=== PATIENT | female | born 1990 | race African-American/Black ===

== ENCOUNTER 2017-08-05 05:02 | Day surgery (SDC) | payer OTHER ==
[2017-07-29 10:20] VITALS: BMI 24.3
[2017-08-05] MEDS ORDERED: LIDOCAINE HCL/PF 2% SDV 5ML VIAL ONE (07:34)
[2017-08-05] MEDS ORDERED: MIDAZOLAM HCL 2 MG/2 ML SINGLE DOSE VIAL ONE (07:35)
[2017-08-05] MEDS ORDERED: SUCCINYLCHOLINE CHLORIDE 200 MG/10 ML VIAL ONE (07:35)
[2017-08-05] MEDS ORDERED: PROPOFOL 20 ML ONE (07:35)
--- NOTE | 2017-08-05 07:58 | HP ---
Admitting History and Physical - Admission Chief Complaint: Abnormal Pap smear History of Present Illness: 26 yo Para 0, LMP unknown, with h/o cervical dysplasia is Pre op for LEEP. History Source: Patient Limitations to Obtaining History: No Limitations - Past Medical History ...LMP: 07/09/17 ...: No ...Para: 0 - Past Surgical History Past Surgical History: Yes: None - Smoking History Smoking history: Never smoked Have you smoked in the past 12 months: No - Alcohol/Substance Use Hx Alcohol Use: Yes (OCCAS) - Social History Usual Living Arrangement: Yes: Alone History of Recent Travel: No Home Medications - Allergies Allergies/Adverse Reactions: Allergies Allergy/AdvReac Type Severity Reaction Status Date / Time No Known Drug Allergies Allergy Verified 08/05/17 07:11 - Home Medications Home Medications: Ambulatory Orders Ascorbic Acid/Vitamin E/Biotin [Hair Skin Nails-Biotin Gummies] 1 each PO DAILY 07/29/17 Iron 18 mg PO DAILY 07/29/17 [place]-3S/Dha/Epa/Fish Oil/D3 [Fish Oil Gummies] 1 each PO DAILY 07/29/17 Family Disease History - Family Disease History Family History: Unremarkable Review of Systems - Review of Systems Constitutional: reports: No Symptoms Eyes: reports: No Symptoms HENT: reports: No Symptoms Neck: reports: No Symptoms Cardiovascular: reports: No Symptoms Respiratory: reports: No Symptoms Gastrointestinal: reports: No Symptoms Genitourinary: reports: No Symptoms Breasts: reports: No Symptoms Reported Musculoskeletal: reports: No Symptoms Integumentary: reports: No Symptoms Neurological: reports: No Symptoms Endocrine: reports: No Symptoms Hematology/Lymphatic: reports: No Symptoms Psychiatric: reports: No Symptoms Pain Intensity: 0 Physical Examination Vital Signs: Vital Signs Temperature 98.8 F 08/05/17 06:52 Pulse Rate 70 08/05/17 06:52 Respiratory Rate 16 08/05/17 06:52 Blood Pressure 103/77 08/05/17 06:52 O2 Sat by Pulse Oximetry (%) 100 08/05/17 06:53 Constitutional: Yes: Well Nourished Eyes: Yes: Conjunctiva Clear HENT: Yes: Atraumatic Neck: Yes: Supple Cardiovascular: Yes: Regular Rate and Rhythm Respiratory: Yes: Regular Gastrointestinal: Yes: Normal Bowel Sounds Extremities: Yes: WNL Neurological: Yes: Alert, Oriented ...Motor Strength: WNL Psychiatric: Yes: Alert, Oriented Problem List - Problems (1) Dysplasia of cervix Code(s): N87.9 - DYSPLASIA OF CERVIX UTERI, UNSPECIFIED Assessment/Plan Cervical dysplasia Pre op for LEEP Consent signed Anesthesia to see patient
--- NOTE | 2017-08-05 07:59 | OP ---
Operative Note - Note: Operative Date: 08/05/17 Pre-Operative Diagnosis: Cervical dysplasia Operation: Loop Electrode Excisional Procedure Post-Operative Diagnosis: Same as Pre-op Surgeon: Crystal Tate Anesthesia: General Specimens Removed: Portion of the cervix Estimated Blood Loss (mls): 10
[2017-08-05] MEDS ORDERED: oxyCODONE HCL 5 MG TABLET PO PRN (08:06)
[2017-08-05] MEDS ORDERED: ONDANSETRON 4 MG/2 ML VIAL IVPUSH PRN (08:06)
[2017-08-05] MEDS ORDERED: PROMETHAZINE HCL 25 MG/1 ML VIAL IVPUSH PRN (08:06)
[2017-08-05] MEDS ORDERED: DEXAMETHASONE SOD PHOSPHATE 4 MG/1 ML VIAL ONE (08:13)
[2017-08-05 09:55] VITALS: TEMP 98.6
[2017-08-05 12:18] VITALS: BP 112/64; PULSE 62
--- NOTE | 2017-08-06 11:24 | PATH ---
Surgical Pathology Report Patient Name: TIMOTHY ORONA [facility]. Rec. #: [id number] /Age/Gender: 1990 (Age: 26) / F Account: [id number] Location: [facility] SURGICAL Taken: 08/05/2017 Received: 08/05/2017 Reported: 08/06/2017 Physicians: Crystal Tate M.D. 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 HSIL IS PRESENT IN ALL 4 QUADRANTS OF THE CERVIX. ALL MARGINS OF EXCISION ARE FREE OF LESION, WITH HSIL LESS THAN 1 MM FROM THE ENDOCERVICAL ASPECT OF THE MAIN SPECIMEN, AND NOT IDENTIFIED IN THE ADDITIONAL PORTION OF SUBMITTED TISSUE. Electronically Signed Neto Ruth M.D. Gross Description Received in formalin labeled "portion of cervix," is a 2 cm in diameter x 1 cm in depth ramirez, annular portion of soft tissue, consistent with a cervical LEEP cone biopsy. There is a suture marking the 12:00 aspect of the specimen, per the surgeon. The specimen is surfaced by a ramirez-pink, shiny and glistening mucosa. The specimen is inked blue and serially sectioned. Separately received within the same container is a 1.0 x 0.5 x 0.2 cm ramirez-pink, irregular, unoriented portion of soft tissue. The specimen is inked blue and serially sectioned. The specimen is entirely submitted in 5 cassettes as follows: 1-12:00 to 3:00; 2-3:00 to 6:00; 3-6:00 to 9:00; 4-9:00 to 12:00; 5-separately received portion of tissue. DL/08/05/2017 saudi/08/05/2017
== END 2017-08-05 11:30 | disposition home or self-care (01) ==
LOC: JASU-SURG 05:02
PROVIDERS: ATTEND Obstetrics & Gynecology
PROC: 0UBC7ZX Excision of Cervix, Via Natural or Artificial Opening, Diagnostic (ICD-10-PCS; principal; 2017-08-05 08:00)
DX: D06.0 Carcinoma in situ of endocervix (principal)
CPT/HCPCS: 84703; 88307-TC; 94760

== ENCOUNTER 2021-10-30 16:29 | Emergency (ER) | payer OTHER ==
[2021-10-30 16:59] VITALS: BP 107/66; PULSE 74; TEMP 98.3; BMI 21.4
[2021-10-30] MEDS ORDERED: METOCLOPRAMIDE HCL INJECTION 10 MG/2 ML VIAL IVPB ONE (19:15)
[2021-10-30] MEDS ORDERED: KETOROLAC TROMETHAMINE 30 MG/1 ML VIAL IVPUSH ONE (19:15)
[2021-10-30] MEDS ORDERED: KETOROLAC TROMETHAMINE 30 MG/1 ML VIAL ONE (19:18)
[2021-10-30] MEDS ORDERED: METOCLOPRAMIDE HCL INJECTION 10 MG/2 ML VIAL ONE (19:18)
[2021-10-30] MEDS ORDERED: ACETAMINOPHEN/CAFFEINE/BUTALBITAL 1 TAB PO ONE (20:18)
[2021-10-30] MEDS ORDERED: ACETAMINOPHEN/CAFFEINE/BUTALBITAL 1 TAB ONE (20:29)
[2021-10-31 23:06] LABS: SARS-CoV-2 NAA Not Detected (Not Detected)
== END 2021-10-30 20:40 | disposition home or self-care (01) ==
LOC: JER 16:29
PROC: 3E033GC Introduction of Other Therapeutic Substance into Peripheral Vein, Percutaneous Approach (ICD-10-PCS; principal; 2021-10-30)
DX: R51.9 Headache, unspecified (principal)
CPT/HCPCS: 99284-25; C9803; U0003; U0005

== ENCOUNTER 2021-11-04 13:25 | Emergency (ER) | payer OTHER ==
[2021-11-04 13:49] VITALS: BP 93/61; PULSE 61; TEMP 97; BMI 21.4
[2021-11-04] MEDS ORDERED: DIPHTH,PERTUSS(ACELL),TET 0.5 ML DISP.SYRIN IM ONE ×3 (15:17→16:07)
== END 2021-11-04 16:09 | disposition home or self-care (01) ==
LOC: JERFT 13:25
PROC: 0HQGXZZ Repair Left Hand Skin, External Approach (ICD-10-PCS; principal; 2021-11-04)
PROC: 3E0234Z Introduction of Serum, Toxoid and Vaccine into Muscle, Percutaneous Approach (ICD-10-PCS; 2021-11-04)
DX: S61.211A Laceration without foreign body of left index finger without damage to nail, initial encounter (principal); W25.XXXA Contact with sharp glass, initial encounter
CPT/HCPCS: 90471; 90715; 99282-25

== ENCOUNTER 2021-11-11 11:43 | Emergency (ER) | payer OTHER ==
[2021-11-11 12:14] VITALS: BP 106/47; PULSE 90; TEMP 98; BMI 22.1
== END 2021-11-11 13:03 | disposition home or self-care (01) ==
LOC: JERFT 11:43
DX: S61.211A Laceration without foreign body of left index finger without damage to nail, initial encounter (principal); Y99.9 Unspecified external cause status; Z48.02 Encounter for removal of sutures
CPT/HCPCS: 99281-25

== ENCOUNTER 2022-02-26 04:25 | Day surgery (SDC) | payer OTHER ==
[2022-02-25 14:38] VITALS: BMI 22.0
[2022-02-26] MEDS ORDERED: CEFAZOLIN 2 GM in DEXTROSE 5%-WATER - 100 ML IVPB ONE (10:00)
[2022-02-26] MEDS ORDERED: TRANEXAMIC ACID 1000 MG/10 ML VIAL IVPUSH ONE (10:00)
[2022-02-26] MEDS ORDERED: PHENAZOPYRIDINE HCL 100 MG TABLET (FP) ONE (10:30)
[2022-02-26] MEDS ORDERED: ROCURONIUM BROMIDE 50 MG/5 ML SYRINGE ONE ×2 (10:37→14:22)
[2022-02-26] MEDS ORDERED: DEXAMETHASONE SOD PHOSPHATE 4 MG/1 ML VIAL ONE (10:37)
[2022-02-26] MEDS ORDERED: LIDOCAINE HCL/PF 2% SDV 5ML VIAL ONE (10:37)
[2022-02-26] MEDS ORDERED: KETOROLAC TROMETHAMINE 30 MG/1 ML VIAL ONE (10:37)
[2022-02-26] MEDS ORDERED: SODIUM CHLORIDE 0.9% P/F 10 ML VIAL IJ ONE (10:37)
[2022-02-26] MEDS ORDERED: MIDAZOLAM HCL 2 MG/2 ML SINGLE DOSE VIAL ONE ×2 (10:38)
[2022-02-26] MEDS ORDERED: PROPOFOL 20 ML ONE (10:38)
[2022-02-26] MEDS: PHENAZOPYRIDINE HCL 100 MG TABLET (FP) PO ONE ×2 (10:49→19:57)
[2022-02-26] MEDS ORDERED: LIDOCAINE 1%/EPI 1:100000 (20 ML MULTI DOSE VIAL) ONE ×2 (11:55→13:11)
[2022-02-26] MEDS ORDERED: ACETAMINOPHEN INJECTION 100 ML IVPB ONE (12:23)
[2022-02-26] MEDS ORDERED: ONDANSETRON 4 MG/2 ML VIAL IVPUSH PRN ×2 (12:29→15:26)
[2022-02-26] MEDS ORDERED: HYDROmorphone HCl 2 MG/ML VIAL IVPUSH PRN (12:29)
[2022-02-26] MEDS ORDERED: ceFAZolin SODIUM 1 GM VIAL IVPB ONE (12:40)
[2022-02-26] MEDS ORDERED: HYDROmorphone HCl 2 MG/ML VIAL ONE ×2 (13:00→15:45)
[2022-02-26] MEDS ORDERED: LIDOCAINE 1%/EPI 1:100000 (20 ML MULTI DOSE VIAL) IJ ONE (13:10)
[2022-02-26] MEDS ORDERED: SUGAMMADEX SODIUM 200 MG/2 ML VIAL ONE (13:59)
[2022-02-26] MEDS ORDERED: GLYCOPYRROLATE 0.2 MG/1 ML VIAL ONE (14:41)
[2022-02-26] MEDS ORDERED: NEOSTIGMINE METHYLSULFATE 0.5 MG/ML - 10 ML MDV ONE (14:41)
[2022-02-26] MEDS ORDERED: oxyCODONE HCL 5 MG TABLET PO PRN (15:26)
[2022-02-26] MEDS ORDERED: DOCUSATE SODIUM 100 MG CAPSULE (FP) PO PRN (15:26)
[2022-02-26] MEDS ORDERED: SIMETHICONE 80 MG TAB.CHEW (FP) PO PRN (15:26)
[2022-02-26] MEDS ORDERED: KETOROLAC TROMETHAMINE 30 MG/1 ML VIAL IVPUSH PRN (15:26)
[2022-02-26] MEDS ORDERED: BISACODYL 5 MG TABLET.DR (FP) PO PRN (15:26)
[2022-02-26] MEDS ORDERED: ACETAMINOPHEN 325 MG TABLET (FP) PO PRN (15:26)
[2022-02-26] MEDS: HYDROmorphone HCl 2 MG/ML VIAL IVPUSH PRN ×4 (15:45→17:55)
[2022-02-26] MEDS ORDERED: ceFAZolin SODIUM 1 GM VIAL ONE ×2 (17:23→18:41)
[2022-02-26] MEDS: CEFAZOLIN 1 GM in DEXTROSE 5%-WATER - 1 GM/50 ML IVPB IVPB SCH (18:00)
[2022-02-26] MEDS: LACTATED RINGERS SOLUTION 1,000 ML IV SCH (18:40)
[2022-02-26] MEDS: oxyCODONE HCL 5 MG TABLET PO PRN (20:13)
[2022-02-27] MEDS ORDERED: DEXTROSE 5%-WATER - 50 ML IVPB ONE ×2 (00:58→10:20)
[2022-02-27] MEDS ORDERED: ceFAZolin SODIUM 1 GM VIAL ONE ×2 (00:58→10:19)
[2022-02-27] MEDS: CEFAZOLIN 1 GM in DEXTROSE 5%-WATER - 1 GM/50 ML IVPB IVPB SCH ×2 (01:06→10:21)
[2022-02-27] MEDS: oxyCODONE HCL 5 MG TABLET PO PRN ×2 (01:10→13:01)
[2022-02-27] MEDS ORDERED: ENOXAPARIN NA (PORCINE) 40 MG/0.4 ML DISP.SYRIN SQ SCH (10:00)
[2022-02-27] MEDS: LACTATED RINGERS SOLUTION 1,000 ML IV SCH (13:02)
[2022-02-27 14:58] VITALS: BP 91/56; PULSE 69; TEMP 98.9
== END 2022-02-27 18:20 | disposition home or self-care (01) ==
LOC: JASUSAT 04:25 → JASU-SURG 04:25 → J6S 18:30 → JASUSAT 02-27 18:20
PROVIDERS: ATTEND Obstetrics & Gynecology Gynecologic Oncology
PROC: 0UT7FZZ Resection of Bilateral Fallopian Tubes, Via Natural or Artificial Opening With Percutaneous Endoscopic Assistance (ICD-10-PCS; 2022-02-26)
PROC: 8E0W4CZ Robotic Assisted Procedure of Trunk Region, Percutaneous Endoscopic Approach (ICD-10-PCS; 2022-02-26)
PROC: 0UT9FZZ Resection of Uterus, Via Natural or Artificial Opening With Percutaneous Endoscopic Assistance (ICD-10-PCS; principal; 2022-02-26 11:30)
DX: N92.1 Excessive and frequent menstruation with irregular cycle (principal); R35.0 Frequency of micturition; D25.0 Submucous leiomyoma of uterus; D25.2 Subserosal leiomyoma of uterus; D64.9 Anemia, unspecified
CPT/HCPCS: 58554; S2900; 81025; 86850; 86900; 86901; 88307-TC; 94760

== ENCOUNTER 2022-03-05 10:51 | Emergency (ER) | payer OTHER ==
[2022-03-05 11:00] VITALS: TEMP 97.8; BMI 22.0
[2022-03-05] MEDS ORDERED: SODIUM CHLORIDE 0.9% 500 ML INFUS.BAG IV ONE (11:58)
[2022-03-05 13:07] LABS: BASO % 0.5 % (0-2.0); EOS % 1.5 % (0-4.5); HEMOGLOBIN 10.7 GM/dL (10.7-15.3); LYMPH % 26.3 % (8-40); MCH 28.8 pg (25.7-33.7); MCHC 33.4 g/dl (32.0-36.0); MEAN CELL VOLUME 86.3 fl (80-96); MEAN PLT VOLUME 8.3 fl (7.5-11.1); MONO % 7.7 % (3.8-10.2); PLATELET COUNT 169 10^3/uL (134-434); RDW 13.6 % (11.6-15.6); WHITE BLOOD COUNT 3.5 K/mm3 (4.0-10.0)
[2022-03-05 13:24] LABS: ALBUMIN 3.1 g/dl (3.4-5.0); BLOOD UREA NITROGEN 6.7 mg/dL (7-18); CALCIUM 8.6 mg/dL (8.5-10.1)
[2022-03-05 13:27] LABS: CREATININE 0.6 mg/dL (0.55-1.3)
[2022-03-05 13:29] LABS: BILIRUBIN,TOTAL 0.2 mg/dL (0.2-1); TOT PROT 6.6 g/dl (6.4-8.2)
[2022-03-05 13:46] VITALS: PULSE 56
[2022-03-05 14:21] VITALS: BP 110/66
== END 2022-03-05 14:47 | disposition home or self-care (01) ==
LOC: JER 10:51
DX: I95.1 Orthostatic hypotension (principal)
CPT/HCPCS: 36415; 76604; 76705-TC; 80053; 85025; 93005; 93010; 93308; 99285-25

== ENCOUNTER 2022-03-12 19:57 | Emergency (ER) | payer OTHER ==
[2022-03-12 20:18] VITALS: TEMP 102.6; BMI 21.2
[2022-03-12] MEDS ORDERED: SODIUM CHLORIDE 1,905 ML IV ONE (21:18)
[2022-03-12] MEDS ORDERED: ACETAMINOPHEN 1000 MG/100 ML BAG IVPB ONE (21:20)
[2022-03-12] MEDS ORDERED: ACETAMINOPHEN INJECTION 100 ML IVPB ONE (21:26)
[2022-03-12 22:17] LABS: EPI CELLS 7 /uL (0-25.1); HYALINE CASTS 0 /uL (0-3.1); PH,URINE 7.5 (5.0-8.0); URINE APPEARANCE CLEAR; URINE BACTERIA 33 /uL (0-1359); URINE BILIRUBIN NEGATIVE (NEGATIVE); URINE COLOR YELLOW; URINE GLUCOSE (UA) NEGATIVE (NEGATIVE); URINE KETONE NEGATIVE (NEGATIVE); URINE LEUK ESTERASE TRACE (NEGATIVE); URINE NITRITE NEGATIVE (NEGATIVE); URINE PROTEIN NEGATIVE (NEGATIVE); URINE RBC 1 /uL (0-23.9); URINE UROBILINOGEN 0.2 mg/dL (0.2-1.0); URINE WBC 3 /uL (0-25.8)
[2022-03-12 22:35] LABS: BASO % 0.5 % (0-2.0); EOS % 0.1 % (0-4.5); HEMATOCRIT 32.8 % (32.4-45.2); HEMOGLOBIN 10.9 GM/dL (10.7-15.3); LYMPH % 15.7 % (8-40); MCH 28.4 pg (25.7-33.7); MCHC 33.2 g/dl (32.0-36.0); MEAN CELL VOLUME 85.6 fl (80-96); MEAN PLT VOLUME 9.3 fl (7.5-11.1); NEUT % 77.7 % (42.8-82.8); PLATELET COUNT 240 10^3/uL (134-434); RBC 3.83 M/mm3 (3.60-5.2); RDW 13.6 % (11.6-15.6); WHITE BLOOD COUNT 4.2 K/mm3 (4.0-10.0)
[2022-03-12 22:38] LABS: INR 1.29 (0.83-1.09); PROTHROMBIN TIME (PATIENT) 14.9 SEC (9.7-13.0)
[2022-03-12 22:41] LABS: ACTIVATED PTT 31.6 SECONDS (25.2-36.5)
[2022-03-12 22:50] LABS: CHLORIDE 99 mmol/L (98-107); SODIUM 133 mmol/L (136-145)
[2022-03-12 22:54] LABS: CALCIUM 9.2 mg/dL (8.5-10.1)
[2022-03-12 22:55] LABS: ALBUMIN 3.5 g/dl (3.4-5.0); ANION GAP 6 MMOL/L (8-16); BLOOD UREA NITROGEN 4.6 mg/dL (7-18); CO2 28 mmol/L (21-32); GLUCOSE,RANDOM 88 mg/dL (74-106)
[2022-03-12 22:58] LABS: CREATININE 0.7 mg/dL (0.55-1.3); SGOT/AST 18 U/L (15-37); SGPT/ALT 16 U/L (13-61)
[2022-03-12 22:59] LABS: TOT PROT 7.7 g/dl (6.4-8.2)
[2022-03-12 23:00] LABS: BILIRUBIN,TOTAL 0.3 mg/dL (0.2-1)
[2022-03-12 23:01] LABS: ALK PHOS 53 U/L (45-117)
[2022-03-13 00:59] VITALS: BP 106/74; PULSE 72
[2022-03-13] MEDS ORDERED: metroNIDAZOLE 500 MG TABLET PO ONE (01:05)
[2022-03-13] MEDS ORDERED: CIPROFLOXACIN 500 MG TABLET (RESTRICTED TO ID) PO ONE (01:05)
[2022-03-13] MEDS ORDERED: metroNIDAZOLE 250 MG TABLET ONE ×2 (01:10→01:18)
== END 2022-03-13 01:38 | disposition home or self-care (01) ==
LOC: JER 19:57
PROC: 3E033GC Introduction of Other Therapeutic Substance into Peripheral Vein, Percutaneous Approach (ICD-10-PCS; principal; 2022-03-12)
DX: N70.93 Salpingitis and oophoritis, unspecified (principal)
CPT/HCPCS: 36415; 74177-TC; 80053; 81003; 82553; 83605; 85025; 85610; 85730; 86850; 86900; 86901; 87040; 87077; 87086; 96361; 96374; 99285-25; Q9967

== ENCOUNTER 2023-04-22 03:55 | Day surgery (SDC) | payer OTHER ==
[2023-04-18 10:27] VITALS: BMI 25.0
[~2023-04-22 03:55] MED LIST: LIDOCAINE 1% P/F 10 MG/ML VIAL INF ONE
[2023-04-22] MEDS ORDERED: MIDAZOLAM HCL 2 MG/2 ML SINGLE DOSE VIAL ONE (10:37)
[2023-04-22] MEDS ORDERED: PROPOFOL 20 ML ONE (10:37)
[2023-04-22] MEDS ORDERED: LIDOCAINE HCL 1%, 10 MG/ML (10ML VIAL) MDV ONE ×2 (11:20→11:21)
[2023-04-22] MEDS ORDERED: PROMETHAZINE HCL 25 MG/1 ML VIAL IVPB PRN (11:21)
[2023-04-22] MEDS ORDERED: oxyCODONE HCL 5 MG TABLET PO PRN ×2 (11:21)
[2023-04-22] MEDS ORDERED: ONDANSETRON 4 MG/2 ML VIAL IVPUSH PRN (11:21)
[2023-04-22] MEDS ORDERED: LACTATED RINGERS SOLUTION 1,000 ML IV SCH (11:30)
[2023-04-22] MEDS ORDERED: LIDOCAINE HCL/PF 2% SDV 5ML VIAL ONE (11:32)
[2023-04-22] MEDS ORDERED: KETOROLAC TROMETHAMINE 30 MG/1 ML VIAL ONE (11:32)
[2023-04-22] MEDS ORDERED: LIDOCAINE 1% P/F 10 MG/ML VIAL INF ONE ×2 (11:32)
[2023-04-22] MEDS ORDERED: ceFAZolin SODIUM 1 GM VIAL ONE (11:32)
[2023-04-22 13:02] VITALS: RESP 16
[2023-04-22 15:08] VITALS: BP 111/63; PULSE 48; TEMP 97.3
== END 2023-04-22 15:10 | disposition home or self-care (01) ==
LOC: JASU-SURG 03:55
PROVIDERS: ATTEND Surgery
PROC: 0HBU0ZX Excision of Left Breast, Open Approach, Diagnostic (ICD-10-PCS; principal; 2023-04-22 10:30)
DX: D24.2 Benign neoplasm of left breast (principal)
CPT/HCPCS: 81025; 88307-TC

== ENCOUNTER 2023-11-27 21:59 | Emergency (ER) | payer OTHER ==
[2023-11-27 22:07] VITALS: BMI 22.1
[2023-11-28 00:17] LABS: BASO % 0.8 % (0-2.0); EOS % 0.9 % (0-4.5); HEMATOCRIT 34.3 % (32.4-45.2); HEMOGLOBIN 11.4 GM/dL (10.7-15.3); LYMPH % 56.7 % (8-40); MCH 29.3 pg (25.7-33.7); MCHC 33.1 g/dl (32.0-36.0); MEAN CELL VOLUME 88.3 fl (80-96); MEAN PLT VOLUME 8.1 fl (7.5-11.1); MONO % 8.3 % (3.8-10.2); NEUT % 33.3 % (42.8-82.8); PLATELET COUNT 207 10^3/uL (134-434); RBC 3.89 M/mm3 (3.60-5.2); RDW 13.8 % (11.6-15.6); WHITE BLOOD COUNT 3.8 K/mm3 (4.0-10.0)
[2023-11-28 00:20] LABS: INR 1.17 (0.83-1.09); PROTHROMBIN TIME (PATIENT) 13.5 SEC (9.7-13.0)
[2023-11-28 00:23] LABS: ACTIVATED PTT 31.4 SECONDS (25.2-36.5)
[2023-11-28 00:32] LABS: POTASSIUM 4.1 mmol/L (3.5-5.1)
[2023-11-28 00:36] LABS: CALCIUM 9.3 mg/dL (8.5-10.1)
[2023-11-28 00:37] LABS: ALBUMIN 3.3 g/dl (3.4-5.0); BLOOD UREA NITROGEN 8.2 mg/dL (7-18)
[2023-11-28 00:40] LABS: CREATININE 0.7 mg/dL (0.55-1.3)
[2023-11-28 00:41] LABS: BILIRUBIN,TOTAL 0.3 mg/dL (0.2-1)
[2023-11-28 00:42] LABS: TOT PROT 6.9 g/dl (6.4-8.2)
[2023-11-28 01:37] VITALS: BP 104/62; PULSE 58; RESP 16; TEMP 98.2
== END 2023-11-28 03:27 | disposition home or self-care (01) ==
LOC: JER 21:59
DX: R07.89 Other chest pain (principal)
CPT/HCPCS: 36415; 71046-TC-FY; 80053; 84484; 85025; 85379; 85610; 85730; 93005; 93010; 99285-25